=== PATIENT | male | born 2000 | race Two or more races ===

== ENCOUNTER 2024-05-15 11:21 | Emergency (ER) | payer MEDICAID, OTHER ==
[~2024-05-15] VITALS: Ht 167.6 cm; Wt 102.0 kg
--- NOTE | 2024-05-15 11:49 | ED.PDOC ---
SOB-HPI HPI Comments 24y M who presents to the ED for chief complaint of flu-like symptoms. Pt states he has been having flu-like symptoms for the past 3 weeks. Pt states he woke up today with lightheadedness, increased congestion and cough with associated shortness of breath and came to the ED for evaluation. Pt states he went to urgent care 1 week prior and was prescribed Augmentin and albuterol but states he is continuing to have symptoms despite taking his medications. Pt otherwise denies any recent sick contacts. Pt denies any other symptoms at this time. Pt has noted temp of 101.3 F with heart rate at 129 in the ED with 02 sat of 96% on room air. Pt otherwise denies any other symptoms at this time. Time Seen by MD: 11:43 Reviewed notes: Medications, Allergies Information Source: Patient Mode of Arrival: Ambulatory Brought in by: self Past Medical History PAST MEDICAL HISTORY: Denies Surgical History: Denies all surgeries Family History Family History: Reviewed,noncontributory to illness Social History Smoker: Non-Smoker Alcohol: Denies ETOH Use Drugs: Denies Drug Use Lives In: Home Constitutional: denies: chills, diaphoresis, fatigue, fever, malaise, sweats, weakness, others EENTM: denies: blurred vision, double vision, ear bleeding, ear discharge, ear drainage, ear pain, ear ringing, eye pain, eye redness, hearing loss, mouth pain, mouth swelling, nasal discharge, nose bleeding, nose congestion, nose pain, photophobia, tearing, throat pain, throat swelling, voice changes, others Respiratory: reports: cough, shortness of breath, wheezing, others (congestion); denies: hemoptysis, orthopnea, SOB at rest, SOB with excertion, stridor Cardiovascular: denies: chest pain, dizzy spells, diaphoresis, Dyspnea on exertion, edema, irregular heart beat, left arm pain, lightheadedness, palpitations, PND, syncope, others Gastrointestinal: denies: abdomen distended, abdominal pain, blood streaked bowels, constipated, diarrhea, dysphagia, difficulty swallowing, hematemesis, melena, nausea, poor appetite, poor fluid intake, rectal bleeding, rectal pain, vomiting, others Genitourinary: denies: burning, dysuria, flank pain, frequency, hematuria, incontinence, penile discharge, penile sore, pain, testicle pain, testicle swelling, urgency, others Neurological: denies: dizziness, fainting, headache, left sided numbness, left sided weakness, numbness, paresthesia, pre-existing deficit, right sided numbness, right sided weakness, seizure, speech problems, tingling, tremors, weakness, others Musculoskeletal: denies: back pain, gout, joint pain, joint swelling, muscle pain, muscle stiffness, neck pain, others Integumetry: denies: bruises, change in color, change in hair/nails, dryness, laceration, lesions, lumps, rash, wounds, others Allergic/Immunocompromised: denies: Difficulty Healing, Frequent Infections, Hives, Itching, others Hematologic/Lymphatic: denies: anemia, blood clots, easy bleeding, easy bruising, swollen glands, others Endocrine: denies: excessive hunger, excessive sweating, excessive thirst, excessive urination, flushing, intolerance to cold, intolerance to heat, unexplained weight gain, unexplained weight loss, others Psychiatric: denies: anxiety, bipolar disorder, depression, hopeless, panic disorder, schizophrenia, sleepless, suicidal, others All Other Systems: Reviewed and Negative Physical Exam General Appearance: No Apparent Distress, Normal HEENT: Normal ENT Inspection, Pharynx Normal, TMs Normal Neck: Full Range of Motion, Non-Tender, Normal, Normal Inspection Respiratory: Respiratory Distress, Wheezing Cardiovascular: No Edema, No JVD, No Murmur, No Gallop, Normal Peripheral Pulses, Regular Rate/Rhythm Breast Exam: Deferred Gastrointestinal: No Organomegaly, Non Tender, No Pulsatile Mass, Normal Bowel Sounds, Soft Genitalia: Deferred Pelvic: Deferred Rectal: Deferred Extremities: No calf tenderness, Normal capillary refill, Normal inspection, Normal range of motion, Non-tender, No pedal edema Musculoskeletal : Apperance: Normal Neurologic: Alert, sanitarian inspector II-XII nml as Tested, No Motor Deficits, Normal Affect, Normal Mood, No Sensory Deficits Cerebellar Function: Normal Reflexes: Normal Skin: Dry, Normal Color, Warm Lymphatic: No Adenopathy Was a procedure done? Was a procedure done?: No Differential Dx Differential Diagnosis: Anxiety, Asthma, Bronchitis, CHF, COPD, Myocardial infarction, Pneumonia, Pulmonary Embolism, Respiratory Distress Comments influenza A and B, COVID X-Ray, Labs, Meds, VS Vital Signs Date Time Temp Pulse Resp B/P (MAP) Pulse Ox O2 Delivery O2 Flow Rate FiO2 05/15/24 12:00 114 20 95 Room Air* 0 21 05/15/24 12:00 101.0 114 20 119/58 (78) 95 101.0 05/15/24 11:59 101.0 05/15/24 11:59 101.0 05/15/24 11:33 101.3 129 17 123/76 (92) 95 Current Medications Medications (Trade) Dose Ordered Sig/Matthew Route Start Time Stop Time Status Last Admin Ibuprofen (Motrin Tablet) 800 mg ONCE ONCE PO 05/15/24 11:45 05/15/24 11:46 DC 05/15/24 11:59 Acetaminophen (Tylenol Tablet) 650 mg ONCE ONCE PO 05/15/24 11:45 05/15/24 11:46 DC 05/15/24 11:59 Time of 1ST Reevaluation: 12:15 Reevaluation 1ST: Unchanged Time of 2ND Reevaluation: 14:31 Reevaluation 2ND: Improved Patient Education/Counseling: Diagnosis, Treatment, Prognosis, Need For Follow Up Family Education/Counseling: No Family Present Additional Information - I reviewed the following notes from patient's past medical encounters: - The following tests were ordered, and results were reviewed by me: (Labs, X- Ray, EKG):chest x-ray, acetaminophen, ibuprofen - Additional information was gathered from interviewing the following independent Historian: (Family, Other Providers, EMT): none - I reviewed and agreed with the following test results read by other provider: (X-ray, CT, US): radiologist - I discussed treatments and results with medical personnel and: (consultants, family): none Departure 1 Departure Time of Disposition: 14:31 Impression: Primary Impression: Febrile illness Additional Impression: Viral syndrome Disposition: 01 HOME / SELF CARE / HOMELESS Condition: Good Additional Instructions: hydrate, rest, follow up with your doctor in 2-3 days Discharged With: Self Critical Care Note Critical Care Time?: No Stability Stability form required: No Heart Score Heart Score: Heart Score Response (Comments) Value History N/A 0 EKG N/A 0 Age N/A 0 Risk Factors N/A 0 Troponin N/A 0 Total 0 I personally scribed for RONEY NOWAK MD ([email or web address]) on 05/15/24 at 11:49. Electronically submitted by L[facility] Casanova ([facility] I personally scribed for RONEY NOWAK MD ([facility]) on 05/15/24 at 11:51. Electronically submitted by Lj Casanova ([facility] RONEY NOWAK MD May 15, 2024 11:49
[2024-05-15] MEDS: ACETAMINOPHEN 325 MG TAB PO ONE (11:59)
[2024-05-15] MEDS: IBUPROFEN 800 MG TAB PO ONE (11:59)
[2024-05-15 12:00] VITALS: PULSE 114; RESP 20; O2SAT 95
--- NOTE | 2024-05-15 13:33 | DVH ---
XY CHEST PORTABLE, HISTORY: fever COMPARISON: None None TECHNICAL DATA: 1 view of the chest was obtained. FINDINGS: Lines and tubes: None Cardiomediastinal silhouette: normal Pulmonary vasculature: normal Lung expansion: normal Lung airspace: normal Lung interstitium: normal Pleura: normal Pneumothorax: no Bones: Unremarkable Other: no IMPRESSION: No acute intrathoracic abnormality.
[2024-05-15 15:50] VITALS: BP 136/76; PULSE 66; RESP 16; O2SAT 96
[2024-05-15 15:52] VITALS: TEMP 98.9
== END 2024-05-15 15:52 | disposition home or self-care (01) ==
LOC: ER 11:21
DX: B34.9 Viral infection, unspecified (principal); R42 Dizziness and giddiness
CPT/HCPCS: 71045